=== PATIENT | female | born 1945 | race Caucasian/White ===

== ENCOUNTER → 2017-08-12 | Outpatient (CLI) | payer MEDICARE, OTHER ==
[~2017-08-12] MED LIST: ACE325 PO; AMIT-104 PO; BACI1CAP4 PO; CHOL100094 PO; CHOL500045 PO; CYCL-277 PO; CYCL10TA29 PO; DICL1TAB52 PO; DIPH25CA45 PO; DULO30CA6 PO; ENO30I SC; ESOM20CA31 PO; GABA-549 PO; HYDR-2952 PO; HYDR-385 PO; HYDR-4309 PO; IBU200 PO; IRO150 PO; LEVO250T37 PO; LOR5/325 PO; LOR75 PO; MAGN200T8 PO; MAGN250T5 PO; MAGN500T6 PO; MELO-149 PO; MELO-205 PO; OMEG1CAP88 PO; OXY10 PO; PER PO; PNEU0.5D3 IM; POTA-28 PO; POTA8TAB45 PO; PROM12.546 PO; QUIN1POW PO; SEN100 PO; SIM10 PO; SIMV-49 PO; SUCR1ORA13 PO; TOLT4CAP13 PO; TRA50 PO; TRAM-420 PO; TURM500C4 PO; UBID300C3 PO; VAL80 PO; WARF10TA29 PO; ZOLP-1 PO; ZOST19404 IM
--- NOTE | 2017-08-12 16:35 | EKG ---
FACILITY: [facility] PATIENT NAME: YULIA PATEL : [id number] MR: [id number] V: [id number] EXAM DATE: ORDERING PHYSICIAN: JESS MCLEOD TECHNOLOGIST: JENNIFER Montgomery Reason : RESIDENTIAL DRUG USE Blood Pressure : / mmHG Vent. Rate : 062 BPM Atrial Rate : 062 BPM P-R Int : 190 ms QRS Dur : 090 ms QT Int : 432 ms P-R-T Axes : 059 037 053 degrees QTc Int : 438 ms Poor data quality, interpretation may be adversely affected Normal sinus rhythm Normal ECG No previous ECGs available Referred By: Confirmed By:
== END ==
LOC: RESP 16:01
PROVIDERS: ATTEND Nurse Practitioner Family
DX: Z02.9 Encounter for administrative examinations, unspecified (principal)

== ENCOUNTER → 2017-08-13 | Outpatient (CLI) | payer MEDICARE, OTHER | LOC: LAB 10:11 | PROVIDERS: ATTEND Nurse Practitioner Family | DX: E55.9 Vitamin D deficiency, unspecified (principal) | CPT/HCPCS: 36415; 82306 ==

== ENCOUNTER → 2017-08-13 | Outpatient (REF) | DX: Z02.9 Encounter for administrative examinations, unspecified (principal) ==

== ENCOUNTER → 2017-08-28 | Outpatient (CLI) | payer MEDICARE, OTHER ==
[~2017-08-28] MED LIST changes: +LISI-362 PO
== END ==
LOC: RESP 11:42
PROVIDERS: ATTEND Nurse Practitioner Family
DX: Z02.9 Encounter for administrative examinations, unspecified (principal)

== ENCOUNTER → 2017-09-17 | Outpatient (CLI) | payer MEDICARE, OTHER | LOC: LAB 15:03 | PROVIDERS: ATTEND Family Medicine | DX: I10 Essential (primary) hypertension (principal) | CPT/HCPCS: 36415; 82310; 82374; 82435; 82565; 82947; 84132; 84295; 84520 ==

== ENCOUNTER → 2017-11-26 | Outpatient (CLI) | payer MEDICARE, OTHER ==
--- NOTE | 2017-11-26 16:27 | RADIOLOGY IMAGING REPORT ---
[place] [facility] [place] Ruth Reich : 1945 MR: [id number] V: [id number] EXAM DATE: ORDERING PHYSICIAN: JESS MCLEOD TECHNOLOGIST: Location: [facility] - [place] Patient: Ruth Reich : 1945 Visit/Account:[id number] Date of Sevice: 11/26/2017 BONE MINERAL DENSITY HISTORY: screening COMPARISON: DEXA L-spine and left hip 06/10/2012 FINDINGS: LUMBAR SPINE: Bone mineral density (BMD) measured from L1-L4 correlates with a Z-score of 3.5 and a T-score of 2.3 which is normal as defined by the World Health Organization. The corresponding risk of fracture in t he lumbar spine is not increased compared with a young adult reference population. This value has de creased by 2% since the prior study. More than 5% change is considered significant. HIP: Bone mineral density (BMD) measured in the left total hip region correlates with a Z-score of -0.1 an d a T-score of -1.4 which is osteopenia as defined by the World Health Organization. The correspondi ng risk of fracture in the hip is 3X compared with a young adult reference population. This value blair s decreased by 0.5% since the prior study. More than 5% change is considered significant. Bone mineral density (BMD) measured in the left Femoral Neck region measures 0.836 g/cm2. FOREARM: Bone mineral density (BMD) measured in the ULTRADISTAL right forearm, where trabecular bone predomina michelle, correlates with a Z-score of -0.6 and a T-score of -2.6 which is osteoporosis as defined by the World Health Organization. The corresponding risk of fracture in the distal forearm is 6X compared w ith a young adult reference population IMPRESSION: 1. Lumbar spine: Normal. There has been no significant change in the bone mineral density since previous exam. 2. Left Total Hip: Osteopenia. There has been no significant change in the bone mineral density si nce the previous exam. 3. Left Femoral Neck: Bone Mineral Density is 0.836 g/cm2. 4. Right forearm: Osteoporosis. The next DEXA scan of this patient should include the following sites: Right forearm, left hip and L1 -L4.. FRAX? WHO Fracture Risk Assessment Tool link: <http://www.shef.ac.uk/FRAX/tool.jsp?locationValue=9> PLEASE NOTE: 1) The World Health Organization defines low BMD as follows: T-score Normal > -1 Osteopenia < -1 and > -2.5 Osteoporosis < -2.5 without fractures Established osteoporosis < -2.5 with fractures 2) In general, you may wish to consider: Diagnosis Treatment Follow-up DEXA Normal BMD Prevention 2-3 years Osteopenia Prevention/therapy 1-2 years Osteoporosis Therapy Yearly 3) Fracture risk estimated from the T-score is more accurate for vertebral fractures (often spontane ous) than for hip fractures. Report Dictated By: Rafael Guillen DO at 11/26/2017 4:04 PM Report E-Signed By: Rafael Guillen DO at 11/26/2017 4:22 PM WSN:[email or web address]
== END ==
LOC: RAD 07:10
PROVIDERS: ATTEND Nurse Practitioner Family
DX: Z13.820 Encounter for screening for osteoporosis (principal); M81.0 Age-related osteoporosis without current pathological fracture; M85.88 Other specified disorders of bone density and structure, other site
CPT/HCPCS: 77080

== ENCOUNTER → 2017-12-02 | Outpatient (CLI) | payer MEDICARE, OTHER ==
[2017-12-02 10:49] LABS: PLATELET COUNT, AUTOMATED 262 K/uL (150-450)
== END ==
LOC: LAB 10:26
PROVIDERS: ATTEND Nurse Practitioner Family
DX: E83.52 Hypercalcemia (principal); M81.0 Age-related osteoporosis without current pathological fracture; Z79.899 Other long term (current) drug therapy
CPT/HCPCS: 36415; 82040; 82247; 82306; 82310; 82374; 82435; 82565; 82947; 83970; 84075; 84132; 84155; 84295; 84450; 84460; 84520; 85025

== ENCOUNTER → 2017-12-06 | Outpatient (CLI) | payer MEDICARE, OTHER | LOC: LAB 12:21 | PROVIDERS: ATTEND Nurse Practitioner Family | DX: E83.52 Hypercalcemia (principal) | CPT/HCPCS: 36415; 82340; 82570; 83519; 83970 ==

== ENCOUNTER 2017-12-11 14:01 | Emergency (ER) | payer MEDICARE, OTHER ==
--- NOTE | 2017-12-11 14:11 | ER Report ---
History and Physical Time Seen By MD: 14:11 Hx. of Stated Complaint: PATIENT TRIPPED AND FELL LANDING ON HER FOREHEAD. HPI/ROS Chief Complaint: "fell and hit head" HPI: 72-year-old patient reports that she lost her balance and fell while entering a store. Reports she likely hit her head on the stair behind her. She states she has a headache where the wound is but is certain she did not break any teeth or lose consciousness. She states that she refused the ambulance and had a friend drop her off at the ED today. ROS General: denies fevers or chills HEENT: reports ROCHA, denies changes in vision, denies rhinorrhea Respiratory: no difficulty breathing, no shortness of breath CV: no chest pain, no palpitations GI: denies nausea and vomiting Musculoskeletal: reports wound to her right forehead, chin, and abrasions to her face Allergies: Coded Allergies: morphine (Verified Allergy, Intermediate, NAUSEA/VOMITING, 02/13/07) oxycodone (Verified Allergy, Unknown, NAUSEA VOMITING, 07/25/15) promethazine (Verified Allergy, Unknown, Unknown-Reported by Pt, 03/29/17) Home Meds Active Scripts Hydrocodone Bit/Acetaminophen (HYDROCODON-ACETAMINOPHEN 5-325) 1 Each Tablet, 1 EACH PO Q4-6H Y for PAIN for 3 Days, #18 TAB Prov:MARYSOL RIVAS 12/11/17 Tramadol Hcl (TRAMADOL HCL) 50 Mg Tablet, 1 TAB PO QID Y for pain for 30 Days, # 120 TAB 2 Refills Prov:JESS MCLEOD APRNP-C 11/18/17 Lisinopril (LISINOPRIL) 10 Mg Tablet, 1 TAB PO QDAY, #90 TAB 1 Refill Prov:JESS MCLEOD APRNP-C 08/28/17 Amitriptyline Hcl (AMITRIPTYLINE HCL) 10 Mg Tablet, 0.5 TAB PO QHS, #15 TAB 0 Refills Prov:JESS MCLEOD APRN-C 08/12/17 Zolpidem Tartrate (AMBIEN) 5 Mg Tablet, 1 TAB PO QHS, #30 TAB 2 Refills Prov:JESS MCLEOD APRNP-C 08/12/17 Cyclobenzaprine Hcl (CYCLOBENZAPRINE HCL) 5 Mg Tablet, 1 TAB PO HS, #90 TAB 1 Refill Prov:JESS MCLEOD APRN TRAP SETTER-C 08/12/17 Simvastatin (SIMVASTATIN) 20 Mg Tablet, 1 TAB PO QDAY, #90 TAB 3 Refills Prov:JESS MCLEOD APRN TRAP SETTER-C 08/12/17 Gabapentin (GABAPENTIN) 300 Mg Capsule, 3 CAP PO TID, #270 CAPSULE 3 Refills Prov:JESS MCLEOD APRN TRAP SETTER-C 08/09/17 Meloxicam (MOBIC) 7.5 Mg Tablet, 1 TAB PO BID, #180 TAB 3 Refills Prov:JESS MCLEOD APRN TRAP SETTER-C 08/02/17 Zoster Vaccine Live/Pf (Zostavax Vial) 19,400 Unit/0.65 Ml Vial, 0.65 ML IM ONCE , #1 VIAL 0 Refills Prov:JESS MCLEOD APRN TRAP SETTER-C 05/02/17 Reported Medications [place]-3/Dha/Epa/Fish Oil (Fish Oil 1,200 mg Softgel) 360 Mg-1,200 Mg Capsule.dr , 1 CAP PO BID 03/29/17 Turmeric/Turmeric Root Extract (Turmeric 500 mg Capsule) 450 Mg-50 Mg Capsule, 1 CAP PO BID 03/29/17 Ubidecarenone (CO Q-10) 300 Mg Capsule, 1 CAP PO DAILY, CAPSULE 03/29/17 Magnesium Oxide (MAGNESIUM OXIDE) 500 Mg Tablet, 1 TAB PO DAILY 03/29/17 Potassium Chloride (POTASSIUM CHLORIDE) Unknown Strength Tablet.er, 99 MEQ PO QDAY 03/29/17 Cholecalciferol (Vitamin D3) (VITAMIN D) 5,000 Unit Tablet, 1 TAB PO BID 02/06/17 Bacillus Coagulans/Inulin (Probiotic Formula Capsule) Unknown Strength Capsule, 1 CAP PO QDAY 02/06/17 Past Medical/Surgical History Patient has a past medical history of hyperlipidemia, nausea vomiting, reflux, frequent urination, left humerus fracture, low back pain, anemia, rare alcohol use Patient has surgical history of neck surgery, back surgery, total shoulder arthroscopy, right knee, hysterectomy, cholecystectomy, appendectomy, gastric surgery. Patient has family medical history of cancer, CAD. Reviewed Nurses Notes: Yes Hx Smoking: No Smoking Status: Former Smoker Hx Substance Use Disorder: No Hx Alcohol Use: Yes (RARELY) Constitutional Vital Sign - Last 24 Hours 12/11/17 12/11/17 12/11/17 12/11/17 14:08 14:08 14:14 14:30 Temp 97.8 Pulse 73 Resp 20 B/P (MAP) 174/119 (137) 158/99 (118) 151/70 (97) Pulse Ox 92 O2 Delivery Room Air 12/11/17 12/11/17 12/11/17 12/11/17 14:31 15:30 15:31 16:00 Pulse 68 65 69 B/P (MAP) 150/88 (108) 147/65 (92) Pulse Ox 97 89 87 12/11/17 12/11/17 16:00 16:22 B/P (MAP) 147/65 (92) 159/94 (115) Physical Exam Physical Examination: General: 72-year-old in no acute distress Skin: right sided laceration to forehead, hematoma to the chin, abrasions to the face HEENT: normocephalic, CN grossly intact, TMs leslye beyer BL without effusion, pupils round equal, and reactive to light and accommodation, no rhinorrhea, no broken or chipped teeth Respiratory: BL equal respiratory excursion, CTA BL CV: clear S1 S2, no murmurs GI: normoactive BS x 4, Musculoskeletal: Free full ROM of all extremities Differential diagnoses considered: intracranial hemorrhage, concussion, cervical fracture, head contusion Medical Decision Making EKG/Imaging Imaging EXAMINATION: CT cervical spine without IV contrast HISTORY: Fall. Head injury. TECHNIQUE: Thin axial CT images of the cervical spine were obtained without IV contrast, with sagittal and coronal 2D reconstructed images. One of the following dose optimization techniques was utilized in the performance of this exam: Automated exposure control; adjustment of the mA and/ or kV according to the patient's size; or use of an iterative reconstruction technique. Specific details can be referenced in the facility's radiology CT exam operational policy. COMPARISON: Cervical spine MRI 08/20/2012. FINDINGS: Extensive postsurgical changes in the cervical spine. There is anterior fusion at C3-C7 with plate and screw fixation. Hardware appears intact and stable in alignment from the prior cervical spine MRI of 2012. There is posterior fusion hardware extending from C3 to the visualized upper thoracic spine, new since the prior MRI. Lateral mass screws are present bilaterally at C3, on the right at C4, and bilaterally at C5 through C7, continuing inferiorly along the visualized upper thoracic spine. There are posterior decompressive laminectomies at C6-T2. Stable alignment along the cervical spine. The dens is intact. The C1 ring is intact, with normal alignment at the craniocervical junction. IMPRESSION: 1. No acute osseous findings along the cervical spine. 2. Extensive anterior and posterior cervical fusion with anterior plate and screw fixation at C3-C7 and posterior fusion hardware extending from C3 inferiorly to the visualized upper thoracic spine. Report Dictated By: Yadiel Bruner MD at 12/11/2017 3:35 PM Report E-Signed By: Yaidel Bruner MD at 12/11/2017 3:41 PM EXAMINATION: CT head without IV contrast CT facial bones without IV contrast HISTORY: Fall. Head injury. Laceration to right upper eye. TECHNIQUE: Axial CT images of the head were obtained from the vertex to the skull base without IV contrast, with coronal and sagittal 2D reconstructed images. Thin axial CT images of the facial bones were obtained without IV contrast, from the superior orbit through the mandible, with 2D coronal and sagittal reconstructed images. One of the following dose optimization techniques was utilized in the performance of this exam: Automated exposure control; adjustment of the mA and/ or kV according to the patient's size; or use of an iterative reconstruction technique. Specific details can be referenced in the facility's radiology CT exam operational policy. COMPARISON: None. FINDINGS: Mild age-appropriate parenchymal volume loss. No CT evidence of intracranial hemorrhage, mass effect, or acute infarct. No midline shift or extra-axial fluid collections. Beyer-white differentiation is maintained. The calvarium is intact. Dedicated imaging of the facial bones demonstrates no evidence of acute facial fracture. There is soft tissue swelling and laceration overlying the superior right orbital rim, without evidence of underlying fracture. The bilateral nasal bones and bony orbits appear intact. There is slight chronic-appearing bony remodeling along the medial wall of the right orbit which may relate to prior fracture of the lamina papyracea but does not have the appearance of an acute fracture. The zygomatic arches and pterygoid plates are unremarkable. The maxilla and mandible are intact, with normal alignment at the temporomandibular joints. Moderate degenerative changes at both temporomandibular joints. The paranasal sinuses and mastoid air cells are unopacified. The skull base is intact. IMPRESSION: 1. No evidence of intracranial hemorrhage or skull fracture. 2. Soft tissue swelling and laceration overlies the superior right orbital rim, without evidence of underlying fracture. 3. No evidence of acute facial fracture. Report Dictated By: Yadiel Bruner MD at 12/11/2017 3:22 PM Report E-Signed By: Yadiel Bruner MD at 12/11/2017 3:34 PM ED Course/Re-evaluation ED Course 72-year-old female presents to the emergency department following a fall she had outside a store today. She states she hit her head potentially on a stair but did not lose consciousness. History and physical examination obtained. Differential diagnoses considered and discussed with the patient. Head, facial, and cervical CT normal. The patient's laceration was repaired with stitches. The patient agrees to return to the ED if her condition worsens, if she experiences severe headache, nausea, vomiting, or infection of the laceration. The patient has been sent home for self-care and encouraged to follow up with her primary care provider. Procedure Procedure: Laceration repair. Verbal consent was obtained from the patient. The 4 cm laceration on the right eyebrow was anesthetized in the usual fashion. The wound was scrubbed, draped and explored to its base with a gloved finger. There were no deep structures involved. No tendon injury was identified. The wound was repaired with 9 simple interrupted sutures using 6-0 Prolene material. The wound repair was simple. The procedure was performed by myself. Decision to Disposition Date: Dec 11, 2017 Decision to Disposition Time: 16:21 Depart Departure Latest Vital Signs Vital Signs Date Time Temp Pulse Resp B/P (MAP) Pulse Ox O2 Delivery O2 Flow Rate FiO2 12/11/17 16:22 159/94 (115) 12/11/17 16:00 69 87 12/11/17 14:08 97.8 20 Room Air Impression: Primary Impression: Head contusion Additional Impression: Scalp laceration Condition: Improved Disposition: HOME OR SELF-CARE Referrals: JESS MCLEOD APRN TRAP SETTER-C (PCP) New Scripts Hydrocodone Bit/Acetaminophen (HYDROCODON-ACETAMINOPHEN 5-325) 1 Each Tablet 1 EACH PO Q4-6H Y for PAIN for 3 Days, #18 TAB Prov: MARYSOL RIVAS 6/13/18 Patient Instructions: Contusion in Adults (ED) Additional Instructions: Keep the stitches dry for 48 hours. Follow up with your primary care provider to remove stitches in 5-7 days. Take hydrocodone and over the counter ibuprofen for pain as needed. Return to the emergency department if you experiences severe headache, nausea, or vomiting. Seek medical attention if you suspect the wound has become infected. Problem Qualifiers Primary Impression: Head contusion Encounter type: initial encounter Contusion of head detail: periocular area Laterality: right Qualified Codes: S00.11XA - Contusion of right eyelid and periocular area, initial encounter Additional Impression: Scalp laceration Encounter type: initial encounter Qualified Codes: S01.01XA - Laceration without foreign body of scalp, initial encounter MARYSOL RIVAS Dec 11, 2017 14:11
[2017-12-11] MEDS ORDERED: DIPHTH/TETANUS/ACEL. PERTUSSIS IM ONLY ONE (14:30)
--- NOTE | 2017-12-11 15:40 | RADIOLOGY IMAGING REPORT ---
FACILITY: [facility] - [place] PATIENT NAME: Ruth Reich : 1945 MR: [id number] V: [id number] EXAM DATE: ORDERING PHYSICIAN: MARYSOL RIVAS TECHNOLOGIST: Location: [facility] - [place] Patient: Ruth Reich : 1945 Visit/Account:[id number] Date of Sevice: 12/11/2017 EXAMINATION: CT head without IV contrast CT facial bones without IV contrast HISTORY: Fall. Head injury. Laceration to right upper eye. TECHNIQUE: Axial CT images of the head were obtained from the vertex to the skull base without IV c ontrast, with coronal and sagittal 2D reconstructed images. Thin axial CT images of the facial bones were obtained without IV contrast, from the superior orbit through the mandible, with 2D coronal and sagittal reconstructed images. One of the following dose optimization techniques was utilized in the performance of this exam: Autom ated exposure control; adjustment of the mA and/or kV according to the patient's size; or use of an i terative reconstruction technique. Specific details can be referenced in the facility's radiology C T exam operational policy. COMPARISON: None. FINDINGS: Mild age-appropriate parenchymal volume loss. No CT evidence of intracranial hemorrhage, mass effect, or acute infarct. No midline shift or extra-axial fluid collections. Beyer-white differentiation is m aintained. The calvarium is intact. Dedicated imaging of the facial bones demonstrates no evidence of acute facial fracture. There is sof t tissue swelling and laceration overlying the superior right orbital rim, without evidence of underl tanya fracture. The bilateral nasal bones and bony orbits appear intact. There is slight chronic-appe aring bony remodeling along the medial wall of the right orbit which may relate to prior fracture of the lamina papyracea but does not have the appearance of an acute fracture. The zygomatic arches and pterygoid plates are unremarkable. The maxilla and mandible are intact, with normal alignment at the temporomandibular joints. Moderate degenerative changes at both temporomandi bular joints. The paranasal sinuses and mastoid air cells are unopacified. The skull base is intact. IMPRESSION: 1. No evidence of intracranial hemorrhage or skull fracture. 2. Soft tissue swelling and laceration overlies the superior right orbital rim, without evidence of u nderlying fracture. 3. No evidence of acute facial fracture. Report Dictated By: Yadiel Bruner MD at 12/11/2017 3:22 PM Report E-Signed By: Yadiel Bruner MD at 12/11/2017 3:34 PM WSN:[id number]
--- NOTE | 2017-12-11 15:40 | RADIOLOGY IMAGING REPORT ---
FACILITY: [facility] - [place] PATIENT NAME: Ruth Reich : 1945 MR: [id number] V: [id number] EXAM DATE: ORDERING PHYSICIAN: MARYSOL RIVAS TECHNOLOGIST: Location: [facility] Patient: Ruth Reich : 1945 Visit/Account:[id number] Date of Sevice: 12/11/2017 EXAMINATION: CT head without IV contrast CT facial bones without IV contrast HISTORY: Fall. Head injury. Laceration to right upper eye. TECHNIQUE: Axial CT images of the head were obtained from the vertex to the skull base without IV c ontrast, with coronal and sagittal 2D reconstructed images. Thin axial CT images of the facial bones were obtained without IV contrast, from the superior orbit through the mandible, with 2D coronal and sagittal reconstructed images. One of the following dose optimization techniques was utilized in the performance of this exam: Autom ated exposure control; adjustment of the mA and/or kV according to the patient's size; or use of an i terative reconstruction technique. Specific details can be referenced in the facility's radiology C T exam operational policy. COMPARISON: None. FINDINGS: Mild age-appropriate parenchymal volume loss. No CT evidence of intracranial hemorrhage, mass effect, or acute infarct. No midline shift or extra-axial fluid collections. Beyer-white differentiation is m aintained. The calvarium is intact. Dedicated imaging of the facial bones demonstrates no evidence of acute facial fracture. There is sof t tissue swelling and laceration overlying the superior right orbital rim, without evidence of underl tanya fracture. The bilateral nasal bones and bony orbits appear intact. There is slight chronic-appe aring bony remodeling along the medial wall of the right orbit which may relate to prior fracture of the lamina papyracea but does not have the appearance of an acute fracture. The zygomatic arches and pterygoid plates are unremarkable. The maxilla and mandible are intact, with normal alignment at the temporomandibular joints. Moderate degenerative changes at both temporomandi bular joints. The paranasal sinuses and mastoid air cells are unopacified. The skull base is intact. IMPRESSION: 1. No evidence of intracranial hemorrhage or skull fracture. 2. Soft tissue swelling and laceration overlies the superior right orbital rim, without evidence of u nderlying fracture. 3. No evidence of acute facial fracture. Report Dictated By: Yadiel Bruner MD at 12/11/2017 3:22 PM Report E-Signed By: Yadiel Bruner MD at 12/11/2017 3:34 PM WSN:[id number]
--- NOTE | 2017-12-11 15:45 | RADIOLOGY IMAGING REPORT ---
FACILITY: [facility] PATIENT NAME: Ruth Reich : 1945 MR: [id number] V: [id number] EXAM DATE: ORDERING PHYSICIAN: MARYSOL RIVAS TECHNOLOGIST: [place] [facility] [place] : 1945 Visit/Account:[id number] Date of Sevice: 12/11/2017 EXAMINATION: CT cervical spine without IV contrast HISTORY: Fall. Head injury. TECHNIQUE: Thin axial CT images of the cervical spine were obtained without IV contrast, with sagit nemo and coronal 2D reconstructed images. One of the following dose optimization techniques was utilized in the performance of this exam: Autom ated exposure control; adjustment of the mA and/or kV according to the patient's size; or use of an i terative reconstruction technique. Specific details can be referenced in the facility's radiology C T exam operational policy. COMPARISON: Cervical spine MRI 08/20/2012. FINDINGS: Extensive postsurgical changes in the cervical spine. There is anterior fusion at C3-C7 with plate an d screw fixation. Hardware appears intact and stable in alignment from the prior cervical spine MRI 2012. There is posterior fusion hardware extending from C3 to the visualized upper thoracic spine, new sinc e the prior MRI. Lateral mass screws are present bilaterally at C3, on the right at C4, and bilateral ly at C5 through C7, continuing inferiorly along the visualized upper thoracic spine. There are poste rior decompressive laminectomies at C6-T2. Stable alignment along the cervical spine. The dens is intact. The C1 ring is intact, with normal alignment at the craniocervical junction. IMPRESSION: 1. No acute osseous findings along the cervical spine. 2. Extensive anterior and posterior cervical fusion with anterior plate and screw fixation at C3-C7 a nd posterior fusion hardware extending from C3 inferiorly to the visualized upper thoracic spine. Report Dictated By: Yadiel Bruner MD at 12/11/2017 3:35 PM Report E-Signed By: Yadiel Bruner MD at 12/11/2017 3:41 PM WSN:[id number]
[2017-12-11] MEDS ORDERED: HYDR-385 PO (16:20)
[2017-12-11 16:22] VITALS: BP 159/94
== END 2017-12-11 16:32 | disposition home or self-care (01) ==
LOC: ER 14:15
DX: S01.01XA Laceration without foreign body of scalp, initial encounter (principal); S00.11XA Contusion of right eyelid and periocular area, initial encounter; W01.10XA Fall on same level from slipping, tripping and stumbling with subsequent striking against unspecified object, initial encounter
CPT/HCPCS: 70450; 70486; 72125; 90471; 90715; 99284

== ENCOUNTER → 2018-07-28 | Outpatient (CLI) | payer MEDICARE, OTHER ==
[~2018-07-28] MED LIST changes: +FURO-45 PO; -HYDR-4309 PO; +HYDR-653 PO
== END ==
LOC: LAB 11:20
PROVIDERS: ATTEND Nurse Practitioner Family
DX: K92.2 Gastrointestinal hemorrhage, unspecified (principal)
CPT/HCPCS: 36415; 85014; 85018

== ENCOUNTER → 2018-08-08 | Outpatient (CLI) | payer MEDICARE, OTHER | LOC: LAB 12:43 | PROVIDERS: ATTEND Nurse Practitioner Family | DX: K92.2 Gastrointestinal hemorrhage, unspecified (principal) | CPT/HCPCS: 36415; 85027 ==

== ENCOUNTER → 2018-08-22 | Outpatient (CLI) | payer MEDICARE, OTHER ==
[2018-08-22 10:31] LABS: PLATELET COUNT, AUTOMATED 266 K/uL (150-450)
== END ==
LOC: LAB 10:15
PROVIDERS: ATTEND Nurse Practitioner Family
DX: D64.9 Anemia, unspecified (principal)
CPT/HCPCS: 36415; 85025

== ENCOUNTER → 2018-12-16 | Outpatient (CLI) | payer MEDICARE, OTHER ==
[2018-12-16 09:40] LABS: PLATELET COUNT, AUTOMATED 284 K/uL (150-450)
== END ==
LOC: LAB 09:11
PROVIDERS: ATTEND Nurse Practitioner Family
DX: D50.9 Iron deficiency anemia, unspecified (principal); E78.5 Hyperlipidemia, unspecified; E55.9 Vitamin D deficiency, unspecified; I10 Essential (primary) hypertension
CPT/HCPCS: 36415; 82040; 82247; 82306; 82310; 82374; 82435; 82465; 82565; 82728; 82947; 83540; 83550; 83718; 84075; 84132; 84155; 84295; 84443; 84450; 84460; 84478; 84520; 85025